=== PATIENT | female | born 1980 | race Two or more races ===

== ENCOUNTER 2016-03-29 11:28 | Emergency (ER) | payer OTHER ==
[2016-03-29 11:38] VITALS: TEMP 97.8; BMI 18.8
--- NOTE | 2016-03-29 12:09 | PDOC ---
[id number] No Limitations - History of Present Illness Initial Comments: 03/29/16 12:25 The patient is a 35-year-old female, with no significant past medical history, who presents to the ED with right-sided chest pain, palpitations, and diffuse abdominal pain since 6PM last night. Pt describes the chest pain as constant, tight in sensation, 8/10 in severity, with occasional radiation to the neck, with no exacerbating or alleviating factors. Pts palpitations are accompanied by numbness and tingling in her left hand. She describes the abdominal pain as constant, tight in sensation, 8/10 in severity, and alleviated after passing a bowel movement (had one episode of loose stool today). Upon examination, pt states that she is feeling anxious. The patient denies any fever, cough, sore throat, chills, nausea, or vomiting. Pt denies any shortness of breath.Pt denies any dysuria or urinary changes. Pt denies any recent travel or recent weight loss. Allergies: Seafood Social Hx: The pt denies any drug use. <Sravanthi Ely - Last Filed: 03/29/16 12:25> <Jeanne Alcaraz - Last Filed: 03/29/16 16:12> - General Chief Complaint: Pain Stated Complaint: DIZZINESS, ABD PAIN Time Seen by Provider: 03/29/16 11:44 Past History <Sravanthi Ely - Last Filed: 03/29/16 12:25> - Past Medical History Other medical history: NONE - Psycho/Social/Smoking Cessation Hx Suicidal Ideation: No Smoking History: Never smoked Hx Alcohol Use: No Drug/Substance Use Hx: No Substance Use Type: None <Jeanne Alcaraz - Last Filed: 03/29/16 16:12> - Past Medical History Allergies/Adverse Reactions: Allergies Allergy/AdvReac Type Severity Reaction Status Date / Time No Known Drug Allergies Allergy Verified 03/29/16 12:43 SEAFOOD Allergy Rash Uncoded 03/29/16 11:38 Home Medications: Ambulatory Orders NK [No Known Home Medication] 03/29/16 Review of Systems - Review of Systems Able to Perform ROS?: Yes Comments:: 03/29/16 12:13 GENERAL/CONSTITUTIONAL: No fever or chills. No weakness. HEAD, EYES, EARS, NOSE AND THROAT: No change in vision. No ear pain or discharge. No sore throat. CARDIOVASCULAR: No shortness of breath. (+)chest pain, palpitations. RESPIRATORY: No cough, wheezing, or hemoptysis. GASTROINTESTINAL: No nausea, vomiting, or constipation. (+)diarrhea, diffuse abdominal pain GENITOURINARY: No dysuria, frequency, or change in urination. MUSCULOSKELETAL: No joint or muscle swelling or pain. No back pain. (+)neck pain SKIN: No rash NEUROLOGIC: No headache, vertigo, loss of consciousness. (+)numbness and tingling in left hand ENDOCRINE: No increased thirst. No abnormal weight change. HEMATOLOGIC/LYMPHATIC: No anemia, easy bleeding, or history of blood clots. ALLERGIC/IMMUNOLOGIC: No hives or skin allergy. PSYCH: (+)anxiety <Sravanthi Ely - Last Filed: 03/29/16 12:25> *Physical Exam - Vital Signs Last Vital Signs Temp Pulse Resp BP Pulse Ox 97.8 F 89 20 127/72 100 03/29/16 11:35 03/29/16 11:35 03/29/16 11:35 03/29/16 11:35 03/29/16 11:35 - Physical Exam Comments: 03/29/16 12:30 GENERAL: Awake, alert, and fully oriented, in no acute distress HEAD: No signs of trauma EYES: PERRLA, EOMI, sclera anicteric, conjunctiva clear ENT: Auricles normal inspection, hearing grossly normal, nares patent, oropharynx clear without exudates. Moist mucosa NECK: Normal ROM, supple, no lymphadenopathy, JVD, or masses LUNGS: Breath sounds equal, clear to auscultation bilaterally. No wheezes, and no crackles HEART: Regular rate and rhythm, normal S1 and S2, no murmurs, rubs or gallops ABDOMEN: Soft, nontender, normoactive bowel sounds. No guarding, no rebound. No masses EXTREMITIES: Normal range of motion, no edema. No clubbing or cyanosis. No cords, erythema, or tenderness NEUROLOGICAL: Cranial nerves II through XII grossly intact. Normal speech, normal gait SKIN: Warm, Dry, normal turgor, no rashes or lesions noted <Sravanthi Ely - Last Filed: 03/29/16 12:25> - Vital Signs Last Vital Signs Temp Pulse Resp BP Pulse Ox 97.8 F 89 20 127/72 100 03/29/16 11:35 03/29/16 11:35 03/29/16 11:35 03/29/16 11:35 03/29/16 11:35 <Jeanne Alcaraz - Last Filed: 03/29/16 16:12> ED Treatment Course - LABORATORY CBC & Chemistry Diagram: 03/29/16 12:36 03/29/16 12:36 <Jeanne Alcaraz - Last Filed: 03/29/16 16:12> Medical Decision Making - Medical Decision Making 03/29/16 14:09 Additional history from patient- she states that she forgot to mention in her initial evaluation that she started a new prescription for zoloft last night. She states that she was having difficulty sleeping all night, questioned whether it was related. We reviewed side effects of the medication- palpitations and tremors are included, which may explain her symptoms. Awaiting CXR. Will cont to monitor. 03/29/16 16:11 No acute findings on labs, CXR, CTH. Encouraged outpatient cardio f/u, and to stop zoloft until she can see PMD. <Jeanne Alcaraz - Last Filed: 03/29/16 16:12> *DC/Admit/Observation/Transfer - Attestations Scribe Attestion: 03/29/16 12:31 Documentation prepared by Sravanthi Ely, acting as biomedical analytical scientist for Jeanne Alcaraz MD. <Sravanthi Ely - Last Filed: 03/29/16 12:25> - Discharge Dispostion Admit: No <Jeanne Alcaraz - Last Filed: 03/29/16 16:12> Diagnosis at time of Disposition: Palpitations - Discharge Dispostion Disposition: HOME Condition at time of disposition: Stable - Referrals Referrals: Reginaldo Oscar MD [Staff Physician] - Ruben Milian [Primary Care Provider] - - Patient Instructions Printed Discharge Instructions: Sertraline, DI for Palpitations Additional Instructions: Deje de rachel zoloft hasta que pueda octaviano a العراقي mdico Print Language: KYRGYZ
[2016-03-29] MEDS ORDERED: SODIUM CHLORIDE 1,000 ML IV STA (12:19)
[2016-03-29 12:27] LABS: URINE APPEARANCE CLEAR; URINE BILIRUBIN NEGATIVE (NEGATIVE); URINE BLOOD NEGATIVE (NEGATIVE); URINE COLOR YELLOW; URINE GLUCOSE (UA) NEGATIVE (NEGATIVE); URINE KETONE NEGATIVE (NEGATIVE); URINE NITRITE NEGATIVE (NEGATIVE); URINE PROTEIN NEGATIVE (NEGATIVE); URINE UROBILINOGEN 2.0 E.U/dl E.U./dl (0.2-1.0)
[2016-03-29 12:36] LABS: URINE LEUK ESTERASE TRACE (NEGATIVE)
[2016-03-29 12:44] LABS: URINE BACTERIA RARE /hpf (NONE SEEN); URINE MUCUS MANY; URINE RBC 2 /hpf (0-3); URINE WBC 13 /hpf (3-5)
[2016-03-29 12:49] LABS: BASOPHIL 1.1 % (0-2.0); EOSINOPHIL 0.6 % (0-4.5); MCH 29.8 pg (25.7-33.7); MCHC 33.3 g/dl (32.0-36.0); MEAN CELL VOLUME 89.6 fl (80-96); NEUTROPHILS 57.7 % (42.8-82.8); PLATELET COUNT 261 K/MM3 (134-434); RDW 12.8 % (11.6-15.6); WHITE BLOOD COUNT 6.6 K/mm3 (4.0-10.0)
[2016-03-29 13:06] LABS: ALBUMIN 4.2 g/dl (3.4-5.0); ANION GAP 10 (8-16); BILIRUBIN,TOTAL 0.6 mg/dL (0.2-1.0); CALCIUM 8.5 mg/dL (8.5-10.1); CO2 26 mmol/L (21-32); CREATININE 0.5 mg/dL (0.55-1.02); GLUCOSE,RANDOM 94 mg/dL (74-106); SGOT/AST 17 U/L (15-37); SGPT/ALT 28 U/L (12-78); TOT PROT 7.4 g/dl (6.4-8.2)
[2016-03-29 13:14] LABS: ALK PHOS 89 U/L (45-117); THYROID STIMULATING HORMONE 1.57 uIU/ml (0.358-3.74); TROPONIN I < 0.02 ng/ml (0.00-0.05)
[2016-03-29 15:52] VITALS: BP 107/65; PULSE 77
--- NOTE | 2016-03-30 09:35 | EKG ---
Test Reason : Blood Pressure : / mmHG Vent. Rate : 076 BPM Atrial Rate : 076 BPM P-R Int : 152 ms QRS Dur : 088 ms QT Int : 388 ms P-R-T Axes : 057 -05 042 degrees QTc Int : 436 ms NORMAL SINUS RHYTHM NORMAL ECG NO PREVIOUS ECGS AVAILABLE Confirmed by OH DE LA CRUZ MD ([id number]) on 03/30/2016 9:35:11 AM Referred By: Confirmed By:HO DE LA CRUZ MD
== END 2016-03-29 16:36 | disposition home or self-care (01) ==
LOC: JER 11:28
PROC: 3E0337Z Introduction of Electrolytic and Water Balance Substance into Peripheral Vein, Percutaneous Approach (ICD-10-PCS; principal; 2016-03-29)
DX: R00.2 Palpitations (principal); F41.9 Anxiety disorder, unspecified
CPT/HCPCS: 36415; 70450-TC; 71020-TC; 80053; 81003; 81015; 82550; 84443; 84484; 84703; 85025; 93005; 93010; 96360; 99285-25

== ENCOUNTER 2016-06-20 13:52 | Emergency (ER) | payer OTHER ==
[2016-06-20 14:19] VITALS: BMI 18.8
[2016-06-20] MEDS ORDERED: SODIUM CHLORIDE 1,000 ML IV STA (14:27)
--- NOTE | 2016-06-20 14:35 | PDOC ---
Attending Attestation - Resident Resident Name: Harry Young - ED Attending Attestation I have performed the following: I have examined & evaluated the patient, The case was reviewed & discussed with the resident, I agree w/resident's findings & plan - HPI HPI: 06/20/16 14:40 35y F presents with headache/dizziness, and occasional blurry vision - the pt states that she frequently has pressure like headache in her head that is bandlike in nature - pt also states that she has been sleeping very poorly recently, use to sleep around 8 hrs a day, but dropped to 5-6 hrs in novemebr, roughly when her headaches started. pt has been seein neurology as an outpatient. pts exam here is unremarkable and labs, ct head are negative, pt feeling improved with reglan. suspect tension headache, possibly related to lack of sleep will d/c the pt to fu with pmd and neurology discussed strategies to improve sleep hygiene. return precautions were discussed - Physicial Exam PE: 06/20/16 17:04 - Medical Decision Making 06/22/16 17:29 see above Heart Score/ECG Review - ECG Impressions Comment:: 06/20/16 17:23 Twelve-lead EKG was performed and reviewed by me. There is normal sinus rhythm with a normal rate. Rate of 75 The axis is normal. The intervals are normal. There is normal R wave progression There are no ST or T wave abnormalities. Impression: Normal twelve-lead EKG
[2016-06-20 14:36] LABS: URINE APPEARANCE CLEAR; URINE BILIRUBIN NEGATIVE (NEGATIVE); URINE BLOOD NEGATIVE (NEGATIVE); URINE COLOR LTYELLOW; URINE GLUCOSE (UA) NEGATIVE (NEGATIVE); URINE KETONE NEGATIVE (NEGATIVE); URINE LEUK ESTERASE NEGATIVE (NEGATIVE); URINE NITRITE NEGATIVE (NEGATIVE); URINE PROTEIN NEGATIVE (NEGATIVE); URINE UROBILINOGEN NEGATIVE E.U./dl (0.2-1.0)
[2016-06-20] MEDS ORDERED: METOCLOPRAMIDE HCL INJECTION 10 MG/2 ML VIAL IVPUSH ONE (14:40)
[2016-06-20] MEDS ORDERED: METOCLOPRAMIDE HCL INJECTION 10 MG/2 ML VIAL ONE (14:46)
[2016-06-20 14:48] LABS: BASOPHIL 0.8 % (0-2.0); EOSINOPHIL 2.1 % (0-4.5); MCH 30.3 pg (25.7-33.7); MCHC 33.8 g/dl (32.0-36.0); MEAN CELL VOLUME 89.7 fl (80-96); MEAN PLT VOLUME 8.7 fl (7.5-11.1); NEUTROPHILS 46.8 % (42.8-82.8); PLATELET COUNT 230 K/MM3 (134-434); RDW 13.6 % (11.6-15.6); WHITE BLOOD COUNT 5.7 K/mm3 (4.0-10.0)
--- NOTE | 2016-06-20 14:48 | PDOC ---
History of Present Illness - General Chief Complaint: Headache Stated Complaint: DIZZINESS Time Seen by Provider: 06/20/16 14:05 History Source: Patient Exam Limitations: Language Barrier - History of Present Illness Initial Comments: 06/20/16 14:49 35 yo F with PMHx of vertigo and anxiety presents with few week history of headache and dizziness. She describes headache that wraps around her head in band pattern around her head that is associated with blurry vision and and nausea. The headaches do not have a particular pattern and can occur at anytime of the day. She does mention that at time she wakes up with morning headaches. Sometimes also accompanied by some minor hand tingling. The dizziness she describes as if she is spinning as opposed to room spinning. She has taken Tylenol with minimal relief. Denies CP, SOB, abd. pain, fevers, chills, or recent illness. Timing/Duration: reports: episodic Severity: Yes: moderate Associated Symptoms: reports: nausea/vomiting, paresthesia Past History - Travel Traveled outside of the country in the last 30 days: No Close contact w/someone who was outside of country & ill: No - Past Medical History Allergies/Adverse Reactions: Allergies Allergy/AdvReac Type Severity Reaction Status Date / Time No Known Drug Allergies Allergy Verified 06/20/16 14:01 SEAFOOD Allergy Rash Uncoded 06/20/16 14:01 Home Medications: Ambulatory Orders Sertraline HCl [Zoloft -] 50 mg PO DAILY 06/20/16 Psychiatric Problems: Yes (ANXIETY) - Psycho/Social/Smoking Cessation Hx Suicidal Ideation: No Smoking History: Never smoked Hx Alcohol Use: No Drug/Substance Use Hx: No Substance Use Type: None Review of Systems - Review of Systems Able to Perform ROS?: Yes Is the patient limited Chinese proficient: Yes HEENTM: Yes: Blurred Vision Cardiac (ROS): Yes: Palpitations ABD/GI: Yes: Nausea Neurological: Yes: Headache, Tingling, Dizziness All Other Systems: Reviewed and Negative *Physical Exam - Vital Signs Last Vital Signs Temp Pulse Resp BP Pulse Ox 98.1 F 79 16 126/69 100 06/20/16 13:57 06/20/16 13:57 06/20/16 13:57 06/20/16 13:57 06/20/16 13:57 - Physical Exam General Appearance: Yes: Appropriately Dressed, Mild Distress HEENT: positive: EOMI, EZE, Normal Voice Neck: positive: Supple Respiratory/Chest: positive: Lungs Clear, Normal Breath Sounds. negative: Respiratory Distress, Accessory Muscle Use Cardiovascular: positive: Regular Rhythm, Regular Rate, S1, S2. negative: Edema , JVD, Murmur Gastrointestinal/Abdominal: positive: Normal Bowel Sounds, Flat, Soft. negative : Organomegaly, Pulsatile Mass Musculoskeletal: positive: Normal Inspection. negative: CVA Tenderness Extremity: positive: Normal Inspection, Normal Range of Motion Integumentary: positive: Normal Color, Dry, Warm. 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 Compared to prior CT scan of the head dated 03/29/2016 The ventricles and basal cisterns appear unremarkable. No mass lesion, gross acute infarct or intracranial hemorrhage is identified. Visualized paranasal sinuses and mastoid air cells are well-aerated. The calvarium is intact. Impression: No significant interval change or acute intracranial pathology is identified. Reported By: Chidi Salinas MD Medical Decision Making - Medical Decision Making 06/20/16 15:06 A:35 yo F with PMHx of vertigo and anxiety presents with few week history of headache and dizziness. Will get labs to check for significant metabolic abnorm.(CBC,CMP,UA). CT head to r/o mass or IC bleed. She has MRI script from Dr. Jayce Lu as outpatient. Will await labs/imaging and continue to monitor. IVF bolus NS 1L and Reglan for symptoms. 06/20/16 16:07 No acute findings on labs, CXR, CTH. Encouraged outpatient Neuro f/u, and to stop zoloft until she can see PMD. *DC/Admit/Observation/Transfer Diagnosis at time of Disposition: Dizziness of unknown cause Headache Qualifiers: Headache type: tension-type Headache chronicity pattern: episodic headache Intractability: not intractable Qualified Code(s): G44.219 - Episodic tension- type headache, not intractable - Discharge Dispostion Disposition: HOME Condition at time of disposition: Stable Admit: No - Patient Instructions Printed Discharge Instructions: DI for Vertigo, DI for Headache
[2016-06-20 15:27] LABS: ALBUMIN 4.1 g/dl (3.4-5.0); ALK PHOS 106 U/L (45-117); ANION GAP 5 (8-16); BILIRUBIN,TOTAL 0.2 mg/dL (0.2-1.0); CALCIUM 8.8 mg/dL (8.5-10.1); CO2 30 mmol/L (21-32); COCKROFT - GAULT 113.5175; CREATININE 0.6 mg/dL (0.55-1.02); GLUCOSE,RANDOM 117 mg/dL (74-106); SGOT/AST 20 U/L (15-37); SGPT/ALT 28 U/L (12-78); TOT PROT 7.4 g/dl (6.4-8.2)
[2016-06-20 17:28] VITALS: BP 124/78; PULSE 83; TEMP 98.2
--- NOTE | 2016-06-23 12:17 | EKG ---
Test Reason : Blood Pressure : / mmHG Vent. Rate : 075 BPM Atrial Rate : 075 BPM P-R Int : 128 ms QRS Dur : 090 ms QT Int : 374 ms P-R-T Axes : 009 005 041 degrees QTc Int : 417 ms NORMAL SINUS RHYTHM NORMAL ECG WHEN COMPARED WITH ECG OF 29-MAR-2016 12:26, NO SIGNIFICANT CHANGE WAS FOUND Confirmed by CAREY DODD MD ([id number]) on 06/23/2016 12:17:01 PM Referred By: Confirmed By:CAREY DODD MD
== END 2016-06-20 17:15 | disposition home or self-care (01) ==
LOC: JER 13:52
PROC: 3E0337Z Introduction of Electrolytic and Water Balance Substance into Peripheral Vein, Percutaneous Approach (ICD-10-PCS; principal; 2016-06-20)
PROC: 3E033GC Introduction of Other Therapeutic Substance into Peripheral Vein, Percutaneous Approach (ICD-10-PCS; 2016-06-20)
DX: G44.219 Episodic tension-type headache, not intractable (principal); F41.9 Anxiety disorder, unspecified
CPT/HCPCS: 36415; 70450-TC; 80053; 81003; 84703; 85025; 93005; 93010; 96361; 96374; 99284-25

== ENCOUNTER 2018-12-24 11:09 | Emergency (ER) | payer OTHER ==
[2018-12-24 11:46] VITALS: BP 104/61; PULSE 72; TEMP 97.6; BMI 18.2
[2018-12-24] MEDS ORDERED: METOCLOPRAMIDE HCL INJECTION 10 MG/2 ML VIAL IVPUSH ONE (11:57)
[2018-12-24] MEDS ORDERED: SODIUM CHLORIDE 0.9% 500 ML INFUS.BAG IV ONE (11:57)
[2018-12-24] MEDS ORDERED: ACETAMINOPHEN 1000 MG/100 ML VIAL (NON FORMULARY) IVPB ONE (11:57)
[2018-12-24] MEDS ORDERED: MECLIZINE HCL 25 MG TABLET (FP) PO ONE (11:57)
[2018-12-24] MEDS ORDERED: METOCLOPRAMIDE HCL INJECTION 10 MG/2 ML VIAL ONE (12:20)
[2018-12-24] MEDS ORDERED: MECLIZINE HCL 25 MG TABLET (FP) ONE (12:20)
[2018-12-24] MEDS ORDERED: ACETAMINOPHEN INJECTION 100 ML IVPB ONE (12:21)
[2018-12-24 13:28] LABS: BASO % 0.3 % (0-2.0); HEMATOCRIT 37.3 % (32.4-45.2); HEMOGLOBIN 12.2 GM/dL (10.7-15.3); MCH 28.8 pg (25.7-33.7); MCHC 32.7 g/dl (32.0-36.0); MEAN CELL VOLUME 88.1 fl (80-96); MEAN PLT VOLUME 9.5 fl (7.5-11.1); MONO % 1.9 % (3.8-10.2); NEUT % 91.8 % (42.8-82.8); PLATELET COUNT 278 K/MM3 (134-434); RBC 4.23 M/mm3 (3.60-5.2); RDW 13.7 % (11.6-15.6)
--- NOTE | 2018-12-24 13:39 | PDOC ---
Documentation entered by Omar Lainez SCRIBE, acting as scribe for Emily Michaels MD. Emily Michaels MD: This documentation has been prepared by the Migel goodman Xhesika, SCRIBE, under my direction and personally reviewed by me in its entirety. I confirm that the documentation accurately reflects all work, treatment, procedures, and medical decision making performed by me. History of Present Illness - General Chief Complaint: Nausea/Vomiting Stated Complaint: VOMITING AND DIZZINESS Time Seen by Provider: 12/24/18 11:48 History Source: Patient Exam Limitations: No Limitations - History of Present Illness Initial Comments: 12/24/18 12:11 The patient is a 38 year old female with a significant PMH of vertigo who presents to the emergency department for acute sudden onset of vertigo associated with nausea, bilious vomiting, epigastric pain and headaches. Patient notes her vertigo is worsened when turning her head to the right and when going from lying down to standing up. Patient notes her previous episodes of vertigo were never associated with nausea, bilious vomiting, epigastric pain or headaches. The patient denies chest pain, shortness of breath, and dizziness. Denies fever , chills, cough, diarrhea and constipation. Denies dysuria, frequency, urgency and hematuria. Allergies: NKDA Past History - Past Medical History Allergies/Adverse Reactions: Allergies Allergy/AdvReac Type Severity Reaction Status Date / Time No Known Drug Allergies Allergy Verified 06/20/16 14:01 SEAFOOD Allergy Rash Uncoded 06/20/16 14:01 Home Medications: Ambulatory Orders Meclizine HCl 25 mg PO BID #20 tablet 06/20/16 Sertraline HCl [Zoloft -] 50 mg PO DAILY 06/20/16 COPD: No Psychiatric Problems: Yes (ANXIETY) - Immunization History Immunization Up to Date: No - Psycho Social/Smoking Cessation Hx Smoking History: Never smoked Information on smoking cessation initiated: No Hx Alcohol Use: No Drug/Substance Use Hx: No Substance Use Type: None Review of Systems - Review of Systems Able to Perform ROS?: Yes Comments:: 12/24/18 12:12 GENERAL/CONSTITUTIONAL: No fever or chills. No weakness. HEAD, EYES, EARS, NOSE AND THROAT: No change in vision. No ear pain or discharge. No sore throat. CARDIOVASCULAR: No chest pain or shortness of breath. RESPIRATORY: No cough, wheezing, or hemoptysis. GASTROINTESTINAL: + nausea, vomiting. No diarrhea or constipation. GENITOURINARY: No dysuria, frequency, or change in urination. MUSCULOSKELETAL: +epigastric pain. No joint or muscle swelling or pain. No neck or back pain. SKIN: No rash NEUROLOGIC: + vertigo. + headache. No loss of consciousness, or change in strength/sensation. ENDOCRINE: No increased thirst. No abnormal weight change. HEMATOLOGIC/LYMPHATIC: No anemia, easy bleeding, or history of blood clots. ALLERGIC/IMMUNOLOGIC: No hives or skin allergy. *Physical Exam - Vital Signs Last Vital Signs Temp Pulse Resp BP Pulse Ox 97.6 F 72 19 104/61 100 12/24/18 11:25 12/24/18 11:25 12/24/18 11:25 12/24/18 11:25 12/24/18 11:25 - Physical Exam Comments: 12/24/18 12:13 GENERAL: Awake, alert, and fully oriented, in no acute distress HEAD: No signs of trauma EYES: PERRLA, EOMI, sclera anicteric, conjunctiva clear ENT: Auricles normal inspection, hearing grossly normal, nares patent, oropharynx clear without exudates. Moist mucosa NECK: Normal ROM, supple, no lymphadenopathy, JVD, or masses LUNGS: Breath sounds equal, clear to auscultation bilaterally. No wheezes, and no crackles HEART: Regular rate and rhythm, normal S1 and S2, no murmurs, rubs or gallops ABDOMEN: Soft, nontender, normoactive bowel sounds. No guarding, no rebound. No masses EXTREMITIES: Normal range of motion, no edema. No clubbing or cyanosis. No cords, erythema, or tenderness NEUROLOGICAL: Cranial nerves II through XII grossly intact. Normal speech, normal gait SKIN: Warm, Dry, normal turgor, no rashes or lesions noted. ED Treatment Course - LABORATORY CBC & Chemistry Diagram: 12/24/18 12:50 12/24/18 12:50 - Medications Given in the ED: ED Medications Discontinued Medications Generic Name Dose Route Start Last Admin Trade Name Freq PRN Reason Stop Dose Admin Acetaminophen 1,000 mg 12/24/18 11:57 12/24/18 13:02 Ofirmev Injection - IVPB 12/24/18 11:58 1,000 mg ONCE ONE Administration Meclizine HCl 25 mg 12/24/18 11:57 12/24/18 13:02 Antivert - PO 12/24/18 11:58 25 mg ONCE ONE Administration Metoclopramide HCl 10 mg 12/24/18 11:57 12/24/18 13:02 Reglan Injection - IVPUSH 12/24/18 11:58 10 mg ONCE ONE Administration Sodium Chloride 1,000 ml 12/24/18 11:57 12/24/18 13:02 Normal Saline - IV 12/24/18 11:58 1,000 ml ONCE ONE Administration Medical Decision Making - Medical Decision Making 12/24/18 13:35 pt presents to the ED complaining a one day history of positional vertigo, accompanied by nausea, vomiting, diffuse frontal headache and epigatric pain. Most likely BPV, although biliary disease, ectopic , complex migraine and dehydration remain on the differential. Will check labs, treat with reglan , IVF, meclizine and acetaminophen. will reassess. Discharge - Discharge Information Problems reviewed: Yes Clinical Impression/Diagnosis: Vertigo Condition: Good Disposition: HOME - Admission No - Additional Discharge Information Prescription Drug Monitoring Program (I-STOP) results: I-STOP not reviewed - Follow up/Referral - Patient Discharge Instructions Patient Printed Discharge Instructions: DI for Vertigo Additional Instructions: you came to the ED for vertigo--this was most likely caused by a problem with your inner ear. You should return to the ED for sever vertigo, severe nausea and vomiting, severe headache, other new or worsening symptoms. Take the meclizine and zofran prescribed for moderate symptoms. Follow up with your doctor. - Post Discharge Activity
[2018-12-24 13:51] LABS: ALBUMIN 4.4 g/dl (3.4-5.0); BILIRUBIN,TOTAL 0.3 mg/dL (0.2-1); BLOOD UREA NITROGEN 13.5 mg/dL (7-18); CALCIUM 9.5 mg/dL (8.5-10.1); CREATININE 0.5 mg/dL (0.55-1.3); POTASSIUM 4.6 mmol/L (3.5-5.1); TOT PROT 7.6 g/dl (6.4-8.2)
[2018-12-24 14:58] LABS: ANISOCYTOSIS 2+; MACROCYTOSIS 0; OVALOCYTE 1+; PLATELET ESTIMATE NORMAL
== END 2018-12-24 14:55 | disposition home or self-care (01) ==
LOC: JER 11:09
PROC: 3E033NZ Introduction of Analgesics, Hypnotics, Sedatives into Peripheral Vein, Percutaneous Approach (ICD-10-PCS; principal; 2018-12-24)
PROC: 3E033GC Introduction of Other Therapeutic Substance into Peripheral Vein, Percutaneous Approach (ICD-10-PCS; 2018-12-24)
DX: R42 Dizziness and giddiness (principal); Z91.013 Allergy to seafood
CPT/HCPCS: 36415; 80053; 84703; 85025; 96374; 96375; 99283-25; J0131

== ENCOUNTER 2021-08-06 14:28 | Emergency (ER) | payer OTHER ==
[2021-08-06 15:09] VITALS: BP 100/60; PULSE 84; TEMP 98.1; BMI 19.8
[2021-08-06] MEDS ORDERED: KETOROLAC TROMETHAMINE 30 MG/1 ML VIAL IM ONE (15:59)
[2021-08-06] MEDS ORDERED: LIDOCAINE 5% TOPICAL PATCH TP ONE (15:59)
[2021-08-06] MEDS ORDERED: ACETAMINOPHEN 325 MG TABLET (FP) PO ONE (15:59)
[2021-08-06] MEDS ORDERED: LIDOCAINE 5% TOPICAL PATCH ONE (16:05)
[2021-08-06] MEDS ORDERED: ACETAMINOPHEN 325 MG TABLET (FP) ONE (16:05)
[2021-08-06] MEDS ORDERED: KETOROLAC TROMETHAMINE 30 MG/1 ML VIAL ONE (16:06)
[2021-08-06 16:38] LABS: URINE APPEARANCE CLEAR; URINE BILIRUBIN NEGATIVE (NEGATIVE); URINE COLOR YELLOW; URINE GLUCOSE (UA) NEGATIVE (NEGATIVE); URINE KETONE NEGATIVE (NEGATIVE); URINE LEUK ESTERASE NEGATIVE (NEGATIVE); URINE NITRITE NEGATIVE (NEGATIVE); URINE PROTEIN NEGATIVE (NEGATIVE); URINE UROBILINOGEN 0.2 mg/dL (0.2-1.0)
[2021-08-06] MEDS ORDERED: LIDOCAINE PATCH REMOVAL MC SCH (22:00)
== END 2021-08-06 17:43 | disposition home or self-care (01) ==
LOC: JER 14:28
PROC: 3E023GC Introduction of Other Therapeutic Substance into Muscle, Percutaneous Approach (ICD-10-PCS; principal; 2021-08-06)
DX: M54.50 Low back pain, unspecified (principal)
CPT/HCPCS: 81003; 84703; 99284-25